=== PATIENT | female | born 2000 | race Two or more races ===

== ENCOUNTER 2020-05-14 22:47 | Emergency (ER) | payer OTHER, BC, SELFPAY ==
--- NOTE | ~2020-05-14 | XR_ITS ---
EXAMINATION: XR hand RT min 3V EXAM DATE: 05/14/2020 23:03 INDICATION: Initial encounter following injury, with pain of the right hand, 4th finger. TECHNIQUE: Right hand frontal, lateral and oblique projections obtained and reviewed. There is no pr ior study for comparison. FINDINGS: Right metacarpal bones are unremarkable. There are no acute fractures or dislocations iden tified. There is no subcutaneous gas. The soft tissue is unremarkable. Bracelet, no other foreign bodies. IMPRESSION: 1. Right hand exam without acute osseous findings. Reviewed, dictated and finalized at location G.
[2020-05-14 22:49] VITALS: BP 118/74; PULSE 100; RESP 17; TEMP 37; O2SAT 100
--- NOTE | 2020-05-15 02:41 | ED.UPPEXIN ---
HPI - Extremity Injury (Upper) General Chief Complaint: Extremity Injury, Upper Stated Complaint: R hand injury Time Seen by Provider: 05/15/20 02:24 Source: patient Mode of arrival: ambulatory Limitations: no limitations History of Present Illness HPI narrative: This patient is a 19 year old female who presents for evaluation of right hand injury. Patient reports that prior to coming to ER she accidentally jammed her right hand in her car door. She states she accidentally closed her car door on her right hand. She reports pain to right dorsum and pain with moving finger due to severe pain. She has been applying ice and she took tramadol for her pain. She reports tingling to her fingers. She is right hand dominant. complaint: injury to: right and hand Related Data Allergies Allergy/AdvReac Type Severity Reaction Status Date / Time No Known Allergies Allergy Verified 05/14/20 22:48 Review of Systems Review of Systems: All systems reviewed & are unremarkable except as noted in HPI and below PMFSH Past Medical History Medical History (Updated 05/15/20 @ 02:49 by Rosemarie Villafaan MD) Skin graft disorder Surgical History Surgical History (Updated 08/20/19 @ 23:29 by Susana Lynn) No pertinent past surgical history Social History Social History (Updated 08/20/19 @ 23:30 by Susana Lynn) Smoking status: Never smoker Gender identity (if verbalized by the patient): Female Exam Const: General: no acute distress and alert Orientation/consciousness: patient oriented x3 HENMT: Head: normocephalic and atraumatic Face and sinus: face symmetric Eyes: EOM: EOMs intact bilaterally Resp: Effort & Inspection: normal respiratory effort Neuro: General: patient oriented x3 Extrem: Other: right hand with bruising a right hand MCP joint , no swelling. She is able to bend fingers Course Reevaluation(s) Reevaluation #1: I Discussed with patient xray did not show any fracture. Date: 05/15/20 Time: 02:47 Vital Signs Vital signs: Vital Signs Temperature 98.6 F 05/14/20 22:49 Pulse Rate 100 05/14/20 22:49 Respiratory Rate 17 05/14/20 22:49 Blood Pressure 118/74 05/14/20 22:49 Pulse Oximetry 100 05/14/20 22:49 Temperature 98.6 F 05/14/20 22:49 Pulse Rate 100 05/14/20 22:49 Respiratory Rate 17 05/14/20 22:49 Blood Pressure 118/74 05/14/20 22:49 Pulse Oximetry 100 05/14/20 22:49 MDM - Extremity Injury (Upper) Imaging Data Radiologist's impression: ITS Impressions Hand X-Ray 05/14/20 23:27 IMPRESSION: 1. Right hand exam without acute osseous findings. Discharge Plan Discharge Clinical Impression: Contusion of right hand including fingers Qualifiers: Encounter type: initial encounter Qualified Code(s): S60.221A - Contusion of right hand, initial encounter Patient Disposition: Home, Self-Care Condition: Stable Instructions: Antibiotic Form, Contusion in Adults (ED) Additional Instructions: Today you were evaluated for a right hand injury. No fractures were found on your xray. Continue to ice as needed. Prescriptions: New naproxen 375 mg tablet 375 mg PO BID PRN (Reason: pain) Qty: 14 RF: 0 Follow-up/Referrals: JACLYN,Joslyn KOTHARI. [Primary Care Provider] - Sharif Morales MD [Physician] - Stand Alone Forms: Work/School Release IP
== END 2020-05-15 02:59 | disposition home or self-care (01) ==
PROVIDERS: Emergency Provider General Practice; PCP Internal Medicine
DX: S60.221A Contusion of right hand, initial encounter (principal); W23.0XXA Caught, crushed, jammed, or pinched between moving objects, initial encounter
CPT/HCPCS: 73130; 99283

== ENCOUNTER 2024-05-08 15:29 | Emergency (ER) | payer BC, OTHER, SELFPAY ==
--- NOTE | 2024-05-08 15:54 | ED.URI ---
HPI - URI/Sore Throat General Chief Complaint: Upper Respiratory Infection Stated Complaint: sorethroat Time Seen by Provider: 05/08/24 16:02 Source: patient, RN notes reviewed and old records reviewed Mode of arrival: ambulatory Limitations: no limitations History of Present Illness HPI Narrative: 23-year-old female presents to the [facility] with a scratchy throat that started last night, sore throat this morning. No treatment prior Related Data Home Medications Medication Instructions Recorded Confirmed clobetasol 0.05 % topical ointment 1 applic topical PRN PRN Rash 05/08/24 05/08/24 levonorgestrel 21 mcg/24 hr (up to 1 device intrauterine ONCE 05/08/24 05/08/24 8 years) 52 mg intrauterine device (Mirena) propranolol 20 mg tablet 20 mg PO BID 05/08/24 05/08/24 rimegepant 75 mg disintegrating 75 mg PO PRN PRN Migraine Headache 05/08/24 05/08/24 tablet (Nurtec ODT) topiramate 100 mg tablet 100 mg PO DAILY 05/08/24 05/08/24 Allergies Allergy/AdvReac Type Severity Reaction Status Date / Time No Known Allergies Allergy Verified 05/08/24 15:54 Review of Systems Review of Systems: All systems reviewed & are unremarkable except as noted in HPI and below Constitutional: Constitutional: Reports no additional constitutional complaints Eyes: Eyes: Reports no additional eye complaints ENT: Reports as per HPI and Reports sore throat Cardiovascular: Cardiovascular: Reports no additional cardiovascular complaints, Denies chest pain and Denies dyspnea Respiratory: Respiratory: Reports no additional respiratory complaints, Denies chest congestion, Denies cough and Denies dyspnea Gastrointestinal: Gastrointestinal: Reports no additional gastrointestinal complaints, Denies abdominal pain, Denies nausea and Denies vomiting Musculoskeletal: Musculoskeletal: Reports no additional musculoskeletal complaints Integumentary/Breasts: Skin/Breast: Reports system reviewed and no additional complaints, except as docu Neurologic: Reports system reviewed and no additional complaints, except as documented Psychiatric: Psychiatric: Reports no additional psychiatric complaints Allergic/Immunologic: Allergic/Immunologic: Reports no additional allergic/immunologic complaints PMFSH Past Medical History Medical History Skin graft disorder Surgical History Surgical History No pertinent past surgical history Social History Social History Smoking status: Never smoker Gender identity (if verbalized by the patient): Female Comments At the time of my signature, I reviewed and agree with the nursing past medical, surgical, social, and family history. There is no relevant family history pertinent to the patient complaint. Exam Const: General: cooperative, healthy appearing, comfortable, no acute distress, well developed, alert and well nourished Nutritional Appearance: well nourished Orientation/consciousness: patient oriented x3 Limitations: no limitations HENMT: Head: normal to inspection Ears: hearing grossly normal bilaterally, external ears normal, TM's normal bilaterally, EAC's normal, mastoids normal and no periauricular adenopathy Face/Nose/Sinus: Normal external nose present, normal facial exam and face symmetric Face and sinus: normal facial exam and face symmetric Mouth: Yes Normal oral and palatal mucosa present, Yes lip normal and Yes tongue normal Throat: tonsils normal, uvula midline, postnasal drainage and no uvular edema Eyes: General: appearance normal, both eyes and all related structures Alignment and Position: alignment normal Periorbital: periorbital findings normal Neck: Neck: normal visual inspection, full ROM, no lymphadenopathy and no meningeal signs Chest: Chest palpation & inspection: normal inspection of the chest Resp: Effort &
[2024-05-08 16:01] VITALS: BP 112/66; PULSE 83; RESP 16; TEMP 37.1; O2SAT 100
[2024-05-08 16:11] LABS: EDSTREPNEGPOS1 Negative (Negative)
== END 2024-05-08 16:18 | disposition home or self-care (01) ==
PROVIDERS: Emergency Provider Nurse Practitioner; PCP Internal Medicine
DX: J02.8 Acute pharyngitis due to other specified organisms (principal); R09.82 Postnasal drip
CPT/HCPCS: 87081; 87880; 99213; G0463